=== PATIENT | male | born 1995 | race Caucasian/White ===

== ENCOUNTER 2019-03-11 19:26 | Emergency (ER) | payer OTHER ==
[~2019-03-11] VITALS: Ht 180.3 cm; Wt 124.7 kg
[2019-03-11] MEDS ORDERED: CEPHALEXIN500 M1 PO (21:22)
== END 2019-03-11 22:02 | disposition home or self-care (01) ==
LOC: ED 19:26
DX: S90.31XA Contusion of right foot, initial encounter (principal); M25.571 Pain in right ankle and joints of right foot; V28.4XXA Motorcycle driver injured in noncollision transport accident in traffic accident, initial encounter; Y93.I9 Activity, other involving external motion; Y92.64 Mine or pit as the place of occurrence of the external cause; Y99.8 Other external cause status